=== PATIENT | male | born 1965 | race Caucasian/White ===

== ENCOUNTER 2017-02-06 13:50 | Emergency (ER) | payer SELFPAY ==
[2017-02-06] MEDS ORDERED: MORPHINE SULFATE 5 MG/ML PFS IVP ONE ×2 (14:10→14:34)
[2017-02-06] MEDS ORDERED: CEFAZOLIN 2 Gram 2 GM/50 ML BAG IVPB ONE (14:10)
[2017-02-06] MEDS ORDERED: ONDANSETRON HCL IV 4 MG/2 ML VIAL IVP ONE (14:11)
--- NOTE | 2017-02-06 14:27 | Emergency Department Record ---
History of Present Illness - General Chief Complaint: Laceration(s) Stated Complaint: INJURY TO LEFT THUMB Time Seen by Provider: 02/06/17 14:06 Source: Patient Mode of Arrival: Wheelchair Limitations: No limitations - History of Present Illness Initial Commments: The patient is here due to a crush injury to his L thumb which occurred at work 20 minutes ago. It is quite painful and his Td is UTD. Onset/Timin -: Minutes(s) Place: Work Context: Accidental, Crush injury Associated Symptoms: None Treatments Prior to Arrival: Bandage - Related Data Hx Tetanus Toxoid Vaccination: Yes Home Medications Medication Instructions Recorded Confirmed Last Taken No Home Med [NO HOME MEDS] 02/06/17 02/06/17 Unknown Allergies Allergy/AdvReac Type Severity Reaction Status Date / Time No Known Drug Allergies Allergy Verified 04/24/15 14:38 Travel Screening - Travel/Exposure Within Last 30 Days Have you traveled within the last 30 days?: No Past Medical History - SOCIAL HISTORY Smoking Status: Never smoker Alcohol Use: None Drug Use: None - RESPIRATORY Hx Respiratory Disorders: No - CARDIOVASCULAR Hx Cardio Disorders: No - NEURO Hx Neuro Disorders: No - GI Hx GI Disorders: Yes Hx Abdominal Pain: Yes Comment:: alot of bloated feeling - Hx Genitourinary Disorders: No - ENDOCRINE Hx Endocrine Disorders: No - MUSCULOSKELETAL Hx Musculoskeletal Disorders: No - PSYCH Hx Psych Problems: No - HEMATOLOGY/ONCOLOGY Hx Hematology/Oncology Disorders: No Family Medical History Any Significant Family History?: Yes Hx Diabetes: Grandparents *Diabetes Comment: paternal grandparents Hx Heart Disease: Father Hx Kidney Disease: Father *Kidney Comment: hx stones-1 kidney removed Hx Resp Disorders: Grandparents *Resp Comment: asthma Physical Exam - General General Appearance: Alert, Cooperative, Mild distress - Head Head exam: Atraumatic, Normocephalic, Normal inspection - Eye Eye exam: Normal appearance, PERRL - Extremities Extremities exam: Normal capillary refill (There is poor capillary refill to the distal thumb pad.), Tenderness (There is a diffuse distal thumb degloving injury with mild tenderness.). negative: Normal inspection (The L thumb is very mangled and basically has suffered a severe crush injury. There is no ROM past the DIP joint due to the skin and thumb not being attached to the proximal phalynx.) Course Vital Signs 02/06/17 13:55 Temperature 98.0 F Pulse Rate 57 L Respiratory 20 Rate Blood Pressure 127/67 Pulse Ox 93 L - Reevaluation(s) Reevaluation #1: Due to the extent of the patient's injuries we will need to transfer him to a hand surgeon. The patient would like to go to [facility]. I did discuss the case with Dr. Reyes in the ER at [facility] and he does accept the patient in an ER to ER transfer. 02/06/17 14:35 Medical Decision Making - Data Complexity MDM Data: X-Ray Ordered and/or Reviewed - Radiology Data Radiology results: Report reviewed (L hand: multiple comminuted fx's of the L proximal and distal thumb phalynx.) Disposition Disposition: Transfer Clinical Impression: Thumb injury Disposition: Acute Care Hospital Transfer Transfer To: [facility] Reason For Transfer: Hand surgery Accepting Physician: Amy Time Discussed w/Accepting Physician: 15:50 Condition: (2) Stable Instructions: Laceration (ED) Additional Instructions: Please proceed directly to [facility] ER for further evaluation and treatment. Please do not eat or drink on the way. Forms: Patient Portal Access Time of Disposition: 14:37 Quality - Quality Measures Quality Measures: N/A - Blood Pressure Screening View Details: Yes Does Patient Have Any of the Following: No Blood Pressure Classification: Pre-Hypertensive BP Reading Systolic Measurement: 125 Diastolic Measurement: 78 Screening for High Blood Pressure: < Pre-Hypertensive BP, F/U Documented > [ [id number]] Pre-Hypertensive Follow-up Interventions: Referral to alternative/primary care provider.
[2017-02-06] MEDS ORDERED: Diph,Pert(Acell),Tet Vac 0.5 ML SYR IM ONE (14:28)
--- NOTE | 2017-02-06 21:41 | RADIOLOGY REPORT ---
EXAM: HAND, LEFT 2 VIEWS HISTORY: LEFT FIRST DIGIT INJURY, CRUSHED WITH STEEL PLATE. COMPARISON: None. ENCOUNTER: Initial. TECHNIQUE: Two-view left hand. FINDINGS: Severely comminuted mildly displaced fractures involving essentially the entire left first proximal and distal phalanges extending to the interphalangeal joint. The articular surface of the proximal aspect of the left first proximal phalanx is preserved. IMPRESSION: MARKEDLY COMMINUTED MILDLY DISPLACED FRACTURES INVOLVING ESSENTIALLY THE ENTIRE LEFT FIRST PROXIMAL AND DISTAL PHALANGES WITH EXTENSION TO THE INTERPHALANGEAL JOINT. THE ARTICULAR SURFACE OF THE MCP IS PRESERVED. JOB NUMBER: [id number] MTDD
== END 2017-02-06 15:21 | disposition short-term general hospital (02) ==
LOC: ER 13:50
DX: S62.512A Displaced fracture of proximal phalanx of left thumb, initial encounter for closed fracture (principal); S62.522A Displaced fracture of distal phalanx of left thumb, initial encounter for closed fracture; W23.0XXA Caught, crushed, jammed, or pinched between moving objects, initial encounter; Y92.63 Factory as the place of occurrence of the external cause; Y99.0 Civilian activity done for income or pay
CPT/HCPCS: 99285 ×2; 96374; 96372; 96375; 73120; J2405; J0690; J2270; 90715